=== PATIENT | female | born 1950 | race Caucasian/White ===

== ENCOUNTER 2017-10-19 17:17 | Emergency (ER) | payer MEDICAID, MEDICARE ==
[~2017-10-19] VITALS: Ht 165.1 cm; Wt 85.0 kg
[~2017-10-19 17:17] MED LIST: CYCL-36 PO; DICY1TAB26 PO; FLUO40CA PO; FURO1TAB93 PO; HYDR200T3 PO; OMEP20TA PO; POTA-267 PO; PROM25TA5 PO; VALI5TAB PO; ZONI100C2 PO
[2017-10-19 17:19] VITALS: BP 184/82; PULSE 88; RESP 18; TEMP 98.7; O2SAT 96
--- NOTE | 2017-10-19 17:30 | PD ---
HPI Chief Complaint: ENT Complaint Time Seen by Provider: 17:25 Travel History International Travel<30 days: No Contact w/Intl Traveler<30days: No Traveled to known affect area: No History of Present Illness HPI 67-year-old female came to the emergency room with history of right ear loud ringing noise and diminished hearing. Patient has history of systemic lupus. She apparently went with these complaints to the [facility] emergency room 1 week ago where a CAT scan of the head was done. This was negative. Patient also saw an ENT specialist within last week and so far the exam has been normal. There are some further workup that is due that the ENT specialist will order as per the patient. Meanwhile patient has been doing voracious Google search. She says that her symptoms are from lupus flareup based on what she has found on Google. While trying to explain her symptoms she started getting very agitated with pressured speech. She is disheveled and has a service dog with her on her lap the entire time. She is wearing sunglasses and has not had any eye contact with me during the entire conversation. Vital signs when she initially came in showed hypertension. However the blood pressure in the room once recycled was 138/85. Patient says that she has a brick cleaner and allergy police specialist Dr. Moya. She has been trying to get hold of him but has been unsuccessful as per her. She says she needs to see Dr. Moya immediately here or a neurologist since her symptoms are unbearable at this point. [facility] Past Medical History Narrative Medical List of her past medical, surgical, social and family history is reviewed from the nursing note. 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) Anxiety: Yes Depression: Yes Diverticulitis: Yes Musculoskeletal: Yes (BACK/NECK ISSUES) Migraines: Yes Past Surgical History Hysterectomy: Yes Other Surgery: Yes (TRANSVAGINAL SLING SURGERY) Social History Alcohol Use: Yes Tobacco Use: Yes (4 ciagrettes daily) Substance Use: No Allergies-Medications (Allergen,Severity, Reaction): Coded Allergies: iodine (Unverified Allergy, Intermediate, Hypotension, 10/19/17) potassium iodide (Unverified Allergy, Intermediate, Hypotension, 10/19/17) povidone-iodine (Unverified Allergy, Intermediate, Hypotension, 10/19/17) shellfish derived (Unverified Allergy, Intermediate, Nausea/Vomiting, ) sodium iodide (Unverified Allergy, Intermediate, Hypotension, 10/19/17) sodium iodide (Unverified Allergy, Intermediate, Hypotension, 10/19/17) Comments List of her allergies reviewed from the nursing note. Reported Meds & Prescriptions Reported Meds & Active Scripts Active Bentyl (Dicyclomine HCl) 20 Mg Tab 20 Mg PO Q8 Reported Klor-Con 10 (Potassium Chloride) 10 Meq Tab 10 Meq PO DAILY Lasix (Furosemide) 40 Mg Tab 40 Mg PO DAILY Phenergan (Promethazine HCl) 25 Mg Tab 25 Mg PO Q4H PRN Omeprazole 20 Mg Tab 20 Mg PO DAILY Valium (Diazepam) 5 Mg Tab 5 Mg PO BID Flexeril (Cyclobenzaprine HCl) 10 Mg Tab 10 Mg PO TID PRN Fluoxetine (Fluoxetine HCl) 40 Mg Cap 40 Mg PO DAILY Hydroxychloroquine Sulfat (Hydroxychloroquine Sulfate) 200 Mg Tab 200 Mg PO Q12 PRN Zonisamide 100 Mg Cap 100 Mg PO DAILY Narrative Medication List of her home medications reviewed from the nursing note. Review of Systems Except as stated in HPI: all other systems reviewed are Neg Physical Exam Narrative GENERAL: Awake, alert, disheveled, poor eye contact, pressured speech SKIN: Focused skin assessment warm/dry. HEAD: Atraumatic. Normocephalic. EYES: Pupils equal and round. No scleral icterus. No injection or drainage. ENT: No nasal bleeding or discharge. Mucous membranes pink and moist. Right TM is normal NECK: Trachea midline. No JVD. CARDIOVASCULAR: Regular rate and rhythm. No murmur appreciated. RESPIRATORY: No accessory muscle use. Clear to auscultation. Breath sounds equal bilaterally. GASTROINTESTINAL: Abdomen soft, non-tender, nondistended. Hepatic and splenic margins not palpable. MUSCULOSKELETAL: No obvious deformities. No clubbing. No cyanosis. No edema. NEUROLOGICAL: Awake and alert. No obvious cranial nerve deficits. Motor grossly within normal limits. Normal speech. PSYCHIATRIC: Agitated and pressured speech Data Data Last Documented VS Orders Orders Ed Discharge Order (10/19/17 17:44) MDM Medical Decision Making Medical Screen Exam Complete: Yes Emergency Medical Condition: Yes Medical Record Reviewed: Yes Differential Diagnosis Mnire's disease, possible flareup of lupus, psychosis Narrative Course 5:41 PM since patient does have a brick cleaner I have recommended her to follow up with the brick cleaner. Her condition does not seem to be an emergency at this point. I do not intend to start her on steroid since once again if the brick cleaner finds this to be necessary after seeing her could do that. Patient will be discharged. Procedures EKG Prior to Arrival: No Diagnosis Primary Impression: Tinnitus Qualified Codes: H93.11 - Tinnitus, right ear Additional Instructions: Please follow-up with your brick cleaner as soon as possible. Med/Other Pt SpecificInfo: No Change to Meds Disposition: 01 DISCHARGE HOME Condition: Stable Indra Rivero MD Oct 19, 2017 17:30
[2017-10-19 17:40] VITALS: BP 138/81
== END 2017-10-19 18:15 | disposition home or self-care (01) ==
LOC: NEPD 17:17
DX: H93.11 Tinnitus, right ear (principal); M32.9 Systemic lupus erythematosus, unspecified; I10 Essential (primary) hypertension; D64.9 Anemia, unspecified; F41.9 Anxiety disorder, unspecified; F17.210 Nicotine dependence, cigarettes, uncomplicated; Z87.19 Personal history of other diseases of the digestive system; Z79.899 Other long term (current) drug therapy; Z88.8 Allergy status to other drugs, medicaments and biological substances
CPT/HCPCS: 99281